=== PATIENT | female | born 1980 | race African-American/Black ===

== ENCOUNTER 2018-05-23 22:12 | Emergency (ER) | payer MEDICAID ==
[~2018-05-23] VITALS: Ht 165.1 cm; Wt 63.0 kg
[2018-05-24 01:38] VITALS: BP 100/63
== END 2018-05-24 01:38 | disposition home or self-care (01) ==
LOC: ER 23:32
DX: J40 Bronchitis, not specified as acute or chronic (principal); R07.9 Chest pain, unspecified
CPT/HCPCS: 71045; 99283